=== PATIENT | female | born 1945 | race Hispanic/Latino ===

== ENCOUNTER 2017-01-26 09:26 | Inpatient (IN) | payer MEDICARE, OTHER ==
--- NOTE | 2017-01-26 09:54 | C.PDOC ---
History Of Present Illness Patient is a 71 y/o female that presents to the emergency department for evaluation of hemoptysis since this morning. Patient reports having similar episode 12 months ago that had initially resolved. Patient also complains of increased productive cough since yesterday, and notes having pleuritic pain, and general malaise. 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 Denies recent sick contact, or known TB exposure. Patient reports 50 lb weight loss over the 5 years, and notes "it had been gradual". Otherwise, denies any night sweats, or fever. HEMOPTYSIS SINCE THIS MORNING. PS SIM EPISODE X 1 2 MONTHS AGO THAT HAD INITIALLY RESOLVED. INCR PROD COUGH YEST. +PLEURITIC PAIN. GEN MALAISE. +TB 15 YRS AGO, PS COMPLETED MEDS @ THAT TIME. NO RECENT SICK CONTACT, KNOWN TB EXPOSURE. NO FEVER. PS 50 LB WT LOSS OVER 5 YRS. "IT HAD BEEN GRADUAL". NO NIGHT SWEATS EXAM NARD NONTOXIC +R LOWER RHONCHI NO TACHYPNEA, RETRACTION SPEAKING FULL SENTENCES CV RRR SINUS TACH NO EDEMA WARM DRY Time Seen by Provider: 01/26/17 09:52 Chief Complaint (Nursing): Cough, Cold, Congestion History Per: Patient History/Exam Limitations: no limitations Onset/Duration Of Symptoms: Hrs Current Symptoms Are (Timing): Still Present Quality: "Pain" Associated Symptoms: denies: Fever, Chills, Sweating, Chest Pain, Heart Racing, Leg/Calf Pain, Ankle/Leg Swelling, Dizziness, Light-headedness, Anxiety, Tingling In Hands Or Face, Musle Spasms In Hands Or Feet Recent travel outside of the [place]: No Additional History Per: Patient Past Medical History Reviewed: Historical Data, Nursing Documentation, Vital Signs Vital Signs: Last Vital Signs Temp 98.4 F 01/26/17 12:28 Pulse 68 01/26/17 12:28 Resp 16 01/26/17 12:28 BP 173/80 H 01/26/17 12:28 Pulse Ox 96 01/26/17 13:09 - Medical History PMH: Asthma, COPD, HTN Family History: States: Unknown Family Hx - Social History Hx Alcohol Use: No Hx Substance Use: No - Immunization History Hx Tetanus Toxoid Vaccination: No Hx Influenza Vaccination: Yes Hx Pneumococcal Vaccination: No Review Of Systems Except As Marked, All Systems Reviewed And Found Negative. Constitutional: Positive for: Malaise, Weight loss. Negative for: Fever, Chills , Sweats Cardiovascular: Negative for: Chest Pain, Palpitations, Light Headedness Respiratory: Positive for: Cough, Hemoptysis, Pleuritic Pain. Negative for: Shortness of Breath Gastrointestinal: Negative for: Nausea, Vomiting Physical Exam - Physical Exam Appears: Non-toxic, No Acute Distress (No apparent respiratory distress) Skin: Normal Color, Warm, Dry Head: Atraumatic, Normacephalic Eye(s): bilateral: Normal Inspection Neck: Normal ROM, Supple Chest: Symmetrical Cardiovascular: Rhythm Regular (tachycardic), No Edema, No Murmur Respiratory: No Rales, Rhonchi (Right lower lobe), No Wheezing, Other (no tachypnea or retractions, pt speaking in full sentences) Gastrointestinal/Abdominal: Soft, No Tenderness Extremity: Normal ROM, No Pedal Edema, No Deformity Extremity: Bilateral: Atraumatic Neurological/Psych: Oriented x3, Normal Speech, Normal Cognition ED Course And Treatment - Laboratory Results Result Diagrams: 01/26/17 11:03 01/26/17 11:03 ECG: Interpreted By De ECG Rhythm: Sinus Rhythm ECG Interpretation: Normal Rate From EC (bpm) O2 Sat by Pulse Oximetry: 96 (on RA) Pulse Ox Interpretation: Normal - Radiology CXR: Interpreted by Me CXR Interpretation: Yes: No Acute Disease Progress Note: EKG, CXR, blood work ordered and reviewed. Progress - Re-Evaluation Re-evaluation Note: 01/26/17 12:18 NARD AMBUL WO DIFF D/W DR Stacia ALTAMIRANO AWARE OF ER FINDINGS. WILL EVAL PT IN ER 01/26/17 12:30 SP PMD EVAL, WANTS TO ADMIT PT. WILL CONSULT ID. NO ABX @ [facility] TIME 01/26/17 13:18 NOTIFIED BY RN PT W LARGE OUTPUT HEMOPTYSIS. SARAHY VSS. - Data Reviewed Data Reviewed: Lab, Diagnostic imaging, EKG, Old records Disposition Counseled Patient/Family Regarding: Studies Performed, Diagnosis - Disposition Disposition: HOSPITALIZED Disposition Time: 12:30 Condition: STABLE - POA Present On Arrival: None - Clinical Impression Clinical Impression: Hemoptysis, Weight loss - Scribe Statement The provider has reviewed the documentation as recorded by the Scribe Colt Altamirano All medical record entries made by the Scribe were at my direction and personally dictated by me. I have reviewed the chart and agree that the record accurately reflects my personal performance of the history, physical exam, medical decision making, and the department course for this patient. I have also personally directed, reviewed, and agree with the discharge instructions and disposition. Decision To Admit - Pt Status Changed To: Hospital Disposition Of: Inpatient - Admit Certification Admit to Inpatient:: After my assessment, the patient will require hospitalization for at least two midnights. This is because of the severity of symptoms shown, intensity of services needed, and/or the medical risk in this patient being treated as an outpatient. - InPatient: Physician Admission Certification: I certify that this patient requires 2 or more midnights of care for the following reason:: SEE NOTE - . Bed Request Type: Regular Admitting Physician: Win Altamirano Patient Diagnosis: Hemoptysis, Weight loss
[2017-01-26 11:18] LABS: BASO % 0.2 % (0.0-2.0); EOS % 0.3 % (0.0-4.0); HEMOGLOBIN 10.7 g/dL (11.0-16.0); LYMPH # 1.3 K/uL (1.0-4.3); LYMPH % 23.2 % (20.0-40.0); MEAN CELL VOLUME 97.3 fL (81.0-99.0); MEAN CORPUSCULAR HEMOGLOBIN 32.2 pg (27.0-31.0); MEAN CORPUSCULAR HGB CONC 33.1 g/dL (33.0-37.0); MEAN PLATELET VOLUME 7.9 fL (7.2-11.7); MONO # 0.5 K/uL (0.0-0.8); MONO % 8.7 % (0.0-10.0); NEUT # 3.8 K/uL (1.8-7.0); NEUT % 67.6 % (50.0-75.0); NRBC % 0.1 % (0.0-2.0); RBC 3.32 Mil/uL (3.80-5.20); RED CELL DISTRIBUTION WIDTH 15.5 % (11.5-14.5); WHITE BLOOD COUNT 5.7 K/uL (4.8-10.8)
[2017-01-26 11:26] LABS: ALBUMIN 3.9 g/dL (3.5-5.0)
[2017-01-26 11:28] LABS: VENOUS BLOOD GAS BASE EXCESS 3.1 mmol/L (0.0-2.0); VENOUS BLOOD GAS PCO2 51 mmHg (40-60); VENOUS BLOOD GAS PO2 19 mm/Hg (30-55); VENOUS BLOOD PH 7.37 (7.32-7.43)
[2017-01-26 11:28] LABS: GFR AFRICAN-AMERICAN > 60; GFR NON-AFRICAN AMERICAN > 60
[2017-01-26 11:29] LABS: ALB/GLOB RATIO 0.8 (1.0-2.1); ALT/SGPT 25 U/L (9-52); AST/SGOT 24 U/L (14-36); BLOOD UREA NITROGEN 14 mg/dL (7-17); CALCIUM 8.4 mg/dl (8.6-10.4)
[2017-01-26 11:37] LABS: B-TYPE NATRIURETIC PEPTIDE 437 pg/mL (0-900)
--- NOTE | 2017-01-26 11:50 | RAD ---
HISTORY: COUGH HEMOPTYSIS HO TB COMPARISON: Chest x-ray performed 01/10/16 TECHNIQUE: Chest, one view. FINDINGS: LUNGS: 1.4 x 2.9 cm ovoid density re-identified at the left lung base. 14 mm inferior right upper lobe nodular density. Mild bibasilar atelectasis. Biapical pleural thickening. Please note that chest x-ray has limited sensitivity for the detection of pulmonary masses. PLEURA: No significant pleural effusion identified. No definite pneumothorax . CARDIOVASCULAR: Heart size appears within normal limits. Ectatic aorta. OSSEOUS STRUCTURES: Degenerative changes. VISUALIZED UPPER ABDOMEN: Unremarkable. OTHER FINDINGS: None. IMPRESSION: 1.4 x 2.9 cm ovoid density, left lung base. 14 mm inferior right upper lobe nodular density. Correlate clinically. Recommend CT of the chest for further evaluation if indicated. Mild bibasilar atelectasis. Biapical pleural thickening. Findings discussed with Dr. Martines on 01/26/17 at 11:49 a.m..
--- NOTE | 2017-01-26 18:51 | CP.PCM.CON ---
History of Present Illness - History of Present Illness History of Present Illness: 71 y/o female that presents to the emergency department for evaluation of hemoptysis since this morning. Patient reports having similar episode 12 months ago that had initially resolved. Patient also complains of increased productive cough since yesterday, and notes having pleuritic pain, and general malaise. 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 Denies recent sick contact, or known TB exposure. Patient reports 50 lb weight loss over the 5 years, and notes "it had been gradual". Otherwise, denies any night sweats, or fever. HEMOPTYSIS SINCE THIS MORNING. PS SIM EPISODE X 1 2 MONTHS AGO THAT HAD INITIALLY RESOLVED. INCR PROD COUGH YEST. +PLEURITIC PAIN. GEN MALAISE. +TB 15 YRS AGO, PS COMPLETED MEDS @ THAT TIME. NO RECENT SICK CONTACT, KNOWN TB EXPOSURE. NO FEVER. PS 50 LB WT LOSS OVER 5 YRS. "IT HAD BEEN GRADUAL". NO NIGHT SWEATS Review of Systems - Constitutional Constitutional: As Per HPI, Anorexia, Malaise, Weight Loss - EENT Eyes: absent: As Per HPI, Blind Spots, Blurred Vision, Change in Vision, Decreased Night Vision, Diplopia, Discharge, Dry Eye, Exophthalmos, Floaters, Irritation, Itchy Eyes, Loss of Peripheral Vision, Pain, Photophobia, Requires Corrective Lenses, Sees Flashes, Spots in Vision, Tunnel Vision, Other Visual Disturbances, Loss of Vision, Other Ears: absent: As Per HPI, Decreased Hearing, Ear Discharge, Ear Pain, Tinnitus, Abnormal Hearing, Disequilibrium, Dizziness, Other Nose/Mouth/Throat: absent: As Per HPI, Epistaxis, Nasal Congestion, Nasal Discharge, Nasal Obstruction, Nasal Trauma, Nose Pain, Post Nasal Drip, Sinus Pain, Sinus Pressure, Bleeding Gums, Change in Voice, Dental Pain, Dry Mouth, Dysphagia, Halitosis, Hoarsness, Lip Swelling, Mouth Lesions, Mouth Pain, Odynophagia, Sore Throat, Throat Swelling, Tongue Swelling, Facial Pain, Neck Pain, Neck Mass, Other - Breasts Breasts: absent: As Per HPI, Change in Shape, Mass, Pain, Nipple Discharge, Nipple Inversion, Skin Changes, Swelling, Other - Cardiovascular Cardiovascular: absent: As Per HPI, Acrocyanosis, Chest Pain, Chest Pain at Rest , Chest Pain with Activity, Claudication, Diaphoresis, Dyspnea, Dyspnea on Exertion, Edema, Irregular Heart Rhythm, Pain Radiating to Arm/Neck/Jaw, Leg Edema, Leg Ulcers, Lightheadedness, Orthopnea, Palpitations, Paroxysmal Nocturnal Dyspnea, Pedal Edema, Radiating Pain, Rapid Heart Rate, Slow Heart Rate, Syncope, Other - Respiratory Respiratory: Cough, Hemoptysis - Gastrointestinal Gastrointestinal: absent: As Per HPI, Abdominal Pain, Belching, Bloating, Change in Bowel Habits, Change in Stool Character, Coffee Ground Emesis, Constipation, Cramping, Diarrhea, Dyspepsia, Dysphagia, Early Satiety, Excessive Flatus, Fecal Incontinence, Heartburn, Hematemesis, Hematochezia, Loose Stools, Melena, Nausea, Odynophagia, Temesmus, Vomiting, Other - Genitourinary Genitourinary: absent: As Per HPI, Change in Urinary Stream, Difficulty Urinating, Dysuria, Flank Pain, Hematuria, Pyuria, Nocturia, Urinary Incontinence, Urinary Frequency, Urinary Hesitance, Urinary Urgency, Voiding Freq/Small Amts, Freq UTI, Hx Renal/Bladder Calculi, Hx /Renal Surgery, Bladder Distension, Other - Reproductive: Female Reproductive:Female: absent: As Per HPI, Amenorrhea, Amenorrhea/ Control, Currently Menstual, Cycle <21 Days, Cycle >35 Days, Cycle Variable, Menses 1-7 Days, Menses >/= 8 Days, Menses Variable, Cycle > 4 Weeks Between, No Menses for 6 Months, Heavy Menses, Light Menses, Normal Menses, Spotting Between Cycles , S/P Hysterectomy, Menopausal, Post Menopausal, Premenarche, Abnormal Vaginal Bleeding, Dysmenorrhea, Dyspareunia, Genital Lesions, Genital Pruritis, Pelvic Pain, Prolapse Symptoms, Sexual Dysfunction, Vaginal Discharge, Vaginal Dryness , Vaginal Odor, Vaginal Pruritis, Other - Menstruation Menstruation: absent: As Per HPI, Amenorrhea, Amenorrhea/ Control, Currently Menstual, Cycle <21 Days, Cycle >35 Days, Cycle Variable, Menses 1-7 Days, Menses >/= 8 Days, Menses Variable, Cycle > 4 Weeks Between, No Menses for 6 Months, Heavy Menses, Light Menses, Normal Menses, Spotting Between Cycles , S/P Hysterectomy, Menopausal, Post Menopausal, Premenarche, Abnormal Vaginal Bleeding, Dysmenorrhea, Other - Musculoskeletal Musculoskeletal: absent: As Per HPI, Abnormal Gait, Arthralgias, Atrophy, Back Pain, Deformity, Joint Swelling, Limited Range of Motion, Loss of Height, Muscle Cramps, Muscle Weakness, Myalgias, Neck Pain, Numbness, Radiating Pain into Limb, Stiffness, Tingling, Other - Integumentary Integumentary: absent: As Per HPI, Acne, Alopecia, Bleeding Lesions, Change in Hair, Change in Nails, Change in Pigmentation, Changing Lesions, Dry Skin, Erythema, Furuncle, Hirsutism, Lesions, New Lesions, Non-Healing Lesions, Photosensitivity, Pruritus, Rash, Skin Pain, Skin Ulcer, Sores, Striae, Swelling , Unusual Bruising, Wounds, Jaundice, Other - Neurological Neurological: absent: As Per HPI, Abnormal Gait, Abnormal Hearing, Abnormal Movements, Abnormal Speech, Behavioral Changes, Burning Sensations, Confusion, Convulsions, Disequilibrium, Dizziness, Numbness, Focal Weakness, Frequent Falls , Headaches, Lack of Coordination, Loss of Vision, Memory Loss, Paresthesias, Radicular Pain, Restless Legs, Sensory Deficit, Syncope, Tingling, Tremor, Vertigo, Weakness, Other Visual Disturbances, Other - Psychiatric Psychiatric: absent: As Per HPI, Abnormal Sleep Pattern, Anhedonia, Anxiety, Auditory Hallucinations, Behavioral Changes, Change in Appetite, Change in Libido, Confusion, Depression, Difficulty Concentrating, Hallucinations, Homicidal Ideation, Hopelessness, Irritability, Memory Loss, Mood Swings, Panic Attacks, Paranoia, Suicidal Ideation, Visual Hallucinations, Tactile Hallucinations, Other - Endocrine Endocrine: absent: As Per HPI, Change in Body Appearance, Change in Libido, Cold Intolorance, Deepening of Voice, Excessive Sweating, Fatigue, Flushing, Heat Intolorance, Increase in Ring/Shoe/Hat Size, Palpitations, Polydipsia, Polyphagia, Polyuria, Other - Hematologic/Lymphatic Hematologic: absent: As Per HPI, Easy Bleeding, Easy Bruising, Lymphadenopathy, Other Past Patient History - Infectious Disease Hx of Infectious Diseases: None - Past Social History Smoking Status: Never Smoked - CARDIAC Hx Hypertension: Yes - PULMONARY Hx Asthma: Yes Hx Chronic Obstructive Pulmonary Disease (COPD): Yes - HEENT Hx Deafness: Yes (Hearing aids bilat) - PSYCHIATRIC Hx Substance Use: No - SURGICAL HISTORY Hx Eye Surgery: Yes - ANESTHESIA Hx Anesthesia: Yes Hx Anesthesia Reactions: No Meds Allergies/Adverse Reactions: Allergies Allergy/AdvReac Type Severity Reaction Status Date / Time peach Allergy Verified 01/26/17 09:44 Physical Exam - Constitutional Appears: Non-toxic, Cachectic, Chronically Ill - Head Exam Head Exam: ATRAUMATIC, NORMAL INSPECTION, NORMOCEPHALIC - Eye Exam Eye Exam: PERRL. absent: Scleral icterus - ENT Exam ENT Exam: Mucous Membranes Dry, Normal External Ear Exam - Neck Exam Neck exam: Negative for: Lymphadenopathy - Respiratory Exam Respiratory Exam: Decreased Breath Sounds, Prolonged Expiratory Phase, Rales, Rhonchi - Cardiovascular Exam Cardiovascular Exam: REGULAR RHYTHM, +S1, +S2 - GI/Abdominal Exam GI & Abdominal Exam: Diminished Bowel Sounds, Soft. absent: Tenderness - Rectal Exam Rectal Exam: Deferred - Exam Exam: NORMAL INSPECTION - Extremities Exam Extremities exam: Positive for: pedal pulses present. Negative for: calf tenderness, pedal edema, tenderness - Back Exam Back exam: absent: CVA tenderness (L), CVA tenderness (R), paraspinal tenderness - Neurological Exam Neurological exam: Alert, CN II-XII Intact, Oriented x3, Reflexes Normal - Psychiatric Exam Psychiatric exam: Normal Mood - Skin Skin Exam: Dry Results - Vital Signs Recent Vital Signs: Last Vital Signs Temp 98.0 F 01/26/17 16:40 Pulse 79 01/26/17 16:40 Resp 18 01/26/17 16:40 BP 165/83 H 01/26/17 16:40 Pulse Ox 99 01/26/17 16:40 - Labs Result Diagrams: 01/26/17 11:03 01/26/17 11:03 Assessment & Plan (1) Hemoptysis Status: Acute (2) Bronchitis Status: Acute (3) COPD (chronic obstructive pulmonary disease) with emphysema Status: Acute - Assessment and Plan (Free Text) Assessment: r/o TB vs malignancy IV rx ordered was PPD + and treated for TB 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
--- NOTE | 2017-01-27 07:54 | HP ---
HISTORY OF PRESENT ILLNESS: This is a 71-year-old [place] female who came to the emergency room for evaluation of hemoptysis since this morning. The patient reports having similar episode 12 months ago that had initially resolved. The patient also complains of increased productive cough since yesterday. The patient is also having pleuritic chest pain and general malaise. The patient claims she lost weight recently. The patient also stated that she has been treated for TB [address] Lopez. The patient claims she completed all the medication at that time. No TB exposure at this time. The patient reports 50-pound weight loss over the last 5 years. The patient has chronic chest pain off and on secondary to coughing. PAST MEDICAL HISTORY: Asthma, COPD, hypertension. MEDICATIONS: The patient's medications are reviewed by me. FAMILY HISTORY: No known inherited disease. SOCIAL HISTORY: Nonsmoker, nonalcoholic. No IVDA. ALLERGIES: THE PATIENT IS ALLERGIC TO PEACH. REVIEW OF SYSTEMS: RESPIRATORY: As mentioned above. The patient also has shortness of breath. CARDIOVASCULAR: Positive for chest pain. GASTROINTESTINAL: Positive for abdominal pain and indigestion. CENTRAL NERVOUS SYSTEM: No focal neurological complaints offered. The patient denies having any urinary complaints. The patient has neck pain. PSYCHIATRIC: The patient has anxiety. All other systems are negative. PHYSICAL EXAMINATION: GENERAL: On admission, this is a 71-year-old [place] female, alert and oriented with persistent cough. VITAL SIGNS: Temperature 98.4, pulse 68, respirations 16, blood pressure 173/80 mmHg, pulse ox is 96% at room air. HEENT: Normal. NECK: JVP is flat. Carotids, no bruits. HEART: S1 and S2 normal. No gallop. No murmur. LUNGS: No rales. No wheezing. ABDOMEN: Soft, nontender. No organomegaly. CENTRAL NERVOUS SYSTEM: No focal neurological deficits. EXTREMITIES: No edema of the legs. LABORATORY DATA: On admission, white cell count is 5.7, hemoglobin is 10.7. Anemia present. BMP is within normal limits. The patient has chest x-ray done, which shows left lower lobe mass and also right upper lobe density. IMPRESSION: 1. Hemoptysis, rule out active tuberculosis. 2. Lung mass, rule out carcinoma of the lungs. 3. Weight loss. 4. Hypertension. 5. Chronic obstructive pulmonary disease. PLAN: The patient will be admitted to floor. We will get counseled with Dr. Marin and pulmonary consult with Dr. Dany Rubio. Repeat other workup as needed. Win Salinas MD
[2017-01-27] MEDS: cefTRIAXone 2 GM in Sodium Chloride 0.9% 100 ML IVPB SCH (10:48)
--- NOTE | 2017-01-27 13:33 | CP.PCM.PN ---
Subjective - Date & Time of Evaluation Date of Evaluation: 01/27/17 Time of Evaluation: 13:31 - Subjective Subjective: COUGH PRESENT. HEMOPTYSIS. BP HIGH. Objective - Vital Signs/Intake and Output Vital Signs (last 24 hours): Temp Pulse Resp BP Pulse Ox 97.6 F 80 20 165/89 H 100 01/27/17 08:24 01/27/17 08:24 01/27/17 08:24 01/27/17 08:24 01/27/17 08:24 Intake and Output: 01/27/17 01/27/17 06:59 18:59 Intake Total 300 Balance 300 - Medications Medications: Current Medications Amlodipine Besylate (Norvasc) 5 mg PO DAILY [facility] Ceftriaxone Sodium 2 gm/ (Sodium Chloride) 100 mls @ 100 mls/hr IVPB DAILY [facility] Last Admin: 01/27/17 10:48 Dose: 100 mls/hr Pneumococcal Polyvalent Vaccine (Pneumovax 23 Vaccine) 0.5 ml IM .ONCE ONE Stop: 01/28/17 10:01 - Constitutional Appears: No Acute Distress, Chronically Ill - Eye Exam Eye Exam: Normal appearance, PERRL - ENT Exam ENT Exam: Normal Exam - Respiratory Exam Respiratory Exam: Clear to Ausculation Bilateral, NORMAL BREATHING PATTERN - Cardiovascular Exam Cardiovascular Exam: REGULAR RHYTHM, +S1, +S2 - GI/Abdominal Exam GI & Abdominal Exam: Soft, Normal Bowel Sounds - Extremities Exam Extremities Exam: Full ROM, Normal Capillary Refill, Normal Inspection. absent : Joint Swelling, Pedal Edema - Neurological Exam Neurological Exam: Alert, Awake, CN II-XII Intact, Normal Gait, Oriented x3 Assessment and Plan - Assessment and Plan (Free Text) Assessment: R/O PTB. HTN. Plan: FOR CT CHEST. PUL EVAL.
--- NOTE | 2017-01-27 14:44 | CARD ---
APPROVED REPORT EKG Measurement Heart [id number] <Conclusion> Normal sinus rhythm Normal ECG
--- NOTE | 2017-01-27 15:57 | CT ---
CT chest without IV contrast Indication: Chest x-ray performed 01/26/17 Technique: Contiguous axial images were obtained through the chest without intravenous contrast enhancement. Sagittal and coronal reconstructions were generated and reviewed. This CT exam was performed using 1 or more of the falling dose reduction techniques: Automated exposure control, adjustment of the MAA and/or kV according to patient size, and/or use of iterative reconstruction technique. Radiation dose (DLP): 190.28 MGy-cm. Comparison: Findings: Visualized portions of the inferior thyroid gland appear unremarkable. The unenhanced mediastinal and hilar vascular structures appear grossly unremarkable. The heart appears within normal limits of size. 12 mm precarinal lymph node. Bibasilar fibrosis/atelectasis. Bronchiectasis. Regions of scattered tree-in-bud like opacities bilaterally consistent with small airways disease. Subtle left lower lobe ground-glass infiltrate (for example series 3, image 53). Posterior left mid lung zone 5 mm nodule (series 3, image 59). No pleural effusion. No pneumothorax. 10 mm medial right upper lobe nodule (series 3, image 17). 2.2 x 0.9 cm left lower lobe ovoid/cylindrical density, possibly region of mucoid impaction. Limited visualization of the noncontrast upper abdomen appears grossly unremarkable. Degenerative changes. Kyphosis. Impression: Bibasilar fibrosis/atelectasis. Bronchiectasis. Regions of scattered tree-in-bud like opacities bilaterally consistent with small airways disease. Subtle left lower lobe ground-glass infiltrate. Dependent left mid lung zone. 5 mm nodule, posterior left midlung zone. 10 mm medial right upper lobe nodule . Recommend further evaluation with biopsy, PET- CT, or follow-up CT at 3 months, and 9 months, and 24 months. 2.2 x 0.9 cm left lower lobe ovoid/cylindrical density, possibly region of mucoid impaction.
--- NOTE | 2017-01-27 18:57 | CP.PCM.PN ---
Subjective - Date & Time of Evaluation Date of Evaluation: 01/27/17 Time of Evaluation: 09:00 - Subjective Subjective: still with cough/ hemoptysis may need FOB dr fermin on board Objective - Vital Signs/Intake and Output Vital Signs (last 24 hours): Temp Pulse Resp BP Pulse Ox 98.1 F 79 20 157/81 H 99 01/27/17 15:34 01/27/17 15:34 01/27/17 15:34 01/27/17 15:34 01/27/17 15:34 Intake and Output: 01/27/17 01/27/17 06:59 18:59 Intake Total 300 Balance 300 - Medications Medications: Current Medications Amlodipine Besylate (Norvasc) 5 mg PO DAILY [facility] Last Admin: 01/27/17 16:03 Dose: 5 mg Ceftriaxone Sodium 2 gm/ (Sodium Chloride) 100 mls @ 100 mls/hr IVPB DAILY [facility] Last Admin: 01/27/17 10:48 Dose: 100 mls/hr Pneumococcal Polyvalent Vaccine (Pneumovax 23 Vaccine) 0.5 ml IM .ONCE ONE Stop: 01/28/17 10:01 Assessment and Plan (1) Hemoptysis Status: Acute (2) Bronchitis Status: Acute (3) COPD (chronic obstructive pulmonary disease) with emphysema Status: Acute - Assessment and Plan (Free Text) Assessment: r/o TB vs Malignancy
[2017-01-28 08:35] VITALS: BP 135/78; PULSE 82; RESP 19; TEMP 97.7; O2SAT 96
[2017-01-28] MEDS ORDERED: Pneumococcal 23-Valent Vaccine IM ONE ×2 (10:00→14:30)
[2017-01-28] MEDS: cefTRIAXone 2 GM in Sodium Chloride 0.9% 100 ML IVPB SCH (10:06)
--- NOTE | 2017-01-28 13:29 | CP.PCM.PN ---
Subjective - Date & Time of Evaluation Date of Evaluation: 01/28/17 Time of Evaluation: 13:26 - Subjective Subjective: PT IMPROVING. NO HEMOPTYSIS. SPUTUM C/S POSITIVE FOR STAPH AUREUS-PRELIMINARY. PUL EVAL NOTED. CT CHEST SHOWS LLL INFILTERATE. BRONCHIECTESIS. Objective - Vital Signs/Intake and Output Vital Signs (last 24 hours): Temp Pulse Resp BP Pulse Ox 97.7 F 82 19 135/78 96 01/28/17 08:34 01/28/17 08:34 01/28/17 08:34 01/28/17 08:34 01/28/17 08:34 Intake and Output: 01/28/17 01/28/17 06:59 18:59 Intake Total 360 Balance 360 - Medications Medications: Current Medications Amlodipine Besylate (Norvasc) 5 mg PO DAILY [facility] Last Admin: 01/28/17 10:06 Dose: 5 mg Ceftriaxone Sodium 2 gm/ (Sodium Chloride) 100 mls @ 100 mls/hr IVPB [facility]ILY [facility] Last Admin: 01/28/17 10:06 Dose: 100 mls/hr - Constitutional Appears: No Acute Distress, Chronically Ill - Eye Exam Eye Exam: Normal appearance, PERRL - ENT Exam ENT Exam: Normal Exam - Respiratory Exam Respiratory Exam: Clear to Ausculation Bilateral, NORMAL BREATHING PATTERN - Cardiovascular Exam Cardiovascular Exam: REGULAR RHYTHM, +S1, +S2 - GI/Abdominal Exam GI & Abdominal Exam: Soft, Normal Bowel Sounds - Extremities Exam Extremities Exam: Full ROM, Normal Capillary Refill, Normal Inspection. absent : Joint Swelling, Pedal Edema - Back Exam Back Exam: NORMAL INSPECTION - Neurological Exam Neurological Exam: Alert, Awake, CN II-XII Intact, Normal Gait, Oriented x3 - Psychiatric Exam Psychiatric exam: Normal Affect, Normal Mood Assessment and Plan - Assessment and Plan (Free Text) Assessment: PUL TB RULED OUT. SPUTUM POSITIVE FOR STAPH AUREUS. LLL PNEUMONIA. BRONCHIECTESIS. Plan: FOR DISCHARGE HOME. PO AUGMENTIN F/U CULTURE REPORT OUT PT. F/U IN THE OFFICE 1 WK.
--- NOTE | 2017-01-28 15:27 | CP.PCM.PN ---
Subjective - Date & Time of Evaluation Date of Evaluation: 01/28/17 Time of Evaluation: 15:27 Objective - Vital Signs/Intake and Output Vital Signs (last 24 hours): Temp Pulse Resp BP Pulse Ox 97.7 F 82 19 135/78 96 01/28/17 08:34 01/28/17 08:34 01/28/17 08:34 01/28/17 08:34 01/28/17 08:34 Intake and Output: 01/28/17 01/28/17 06:59 18:59 Intake Total 360 Balance 360 - Medications Medications: Current Medications Amlodipine Besylate (Norvasc) 5 mg PO DAILY AMY Last Admin: 01/28/17 10:06 Dose: 5 mg Ceftriaxone Sodium 2 gm/ (Sodium Chloride) 100 mls @ 100 mls/hr IVPB DAILY AMY Last Admin: 01/28/17 10:06 Dose: 100 mls/hr
--- NOTE | 2017-01-31 17:53 | CON ---
DATE: 01/28/2017 HISTORY OF PRESENT ILLNESS: The patient is a 71-year-old female with past history of hemoptysis, bronchiectasis, recurrent, came to the emergency room complaining of hemoptysis, which is *------* SOCIAL HISTORY: The patient is nonsmoker. PHYSICAL EXAMINATION GENERAL: The patient is awake, alert. *------*. HEENT: Within normal limits. NECK: Supple. CHEST: Symmetrical. HEART: Regular. ABDOMEN: Soft. EXTREMITIES: No edema. IMPRESSION: The patient suffered from bronchiectasis, hemoptysis. The patient had IV antibiotic. CAT scan of the chest *------*. Dany Rubio MD
--- NOTE | 2017-02-01 09:18 | DS ---
HISTORY OF PRESENT ILLNESS: This is a 71-year-old [place] female came to the emergency room with history of coughing blood on the day of admission. The patient complains of persistent cough. The patient also has loss of weight. The patient has generalized malaise. Denies having any fever. 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 Lopez. No night sweats or fever. PAST MEDICAL HISTORY: History of hypertension, peptic ulcer disease, COPD and asthma. FAMILY HISTORY: No known inherited disease. SOCIAL HISTORY: Nonsmoker, nonalcoholic. MEDICATIONS: Antihypertensive only. PHYSICAL EXAMINATION: GENERAL: On admission, alert, oriented, comfortable. VITAL SIGNS: Temperature 98.4, pulse 68, respirations 16, blood pressure 173/80 mmHg, pulse ox is 96% at room air. HEENT: Normal. NECK: JVP is flat. Carotids, no bruits. LUNGS: No rales. No wheezing. HEART: S1 and S2 normal. No gallop. No murmur. ABDOMEN: Soft and nontender. No organomegaly. CENTRAL NERVOUS SYSTEM: No focal neurological complaints. LABORATORY DATA: On admission, white cell count was with in normal limits, mild anemia was present. BMP was normal. Chest x- ray showed left lower lobe patchy infiltrate and also right upper lobe fibrotic changes. The patient was admitted to the hospital. CT scan of the chest was done, which was showing possible infiltrate. The patient sputum culture showed Staphylococcus aureus. Cardiogram was within normal limits. Septic workup was negative. Dr. Marin and Dr. Dany Rubio was consulted. The patient was discharged home with Augmentin p.o. FINAL DIAGNOSES: Left lower lobe pneumonia. Sputum culture positive for Staphylococcus aureus. Hemoptysis. Tuberculosis was ruled out. The patient will be followed up in my office in about 2 weeks. We will continue all the medication. Win Salinas MD
== END 2017-01-28 15:49 | disposition home or self-care (01) | DRG 190 ==
LOC: C.ER 09:26 → C.9E 12:30 → C.3T 14:19 → C.9E 14:44 → C.5T 16:34
PROVIDERS: ADMIT Internal Medicine; ATTEND Internal Medicine
DX: J44.0 Chronic obstructive pulmonary disease with (acute) lower respiratory infection (principal); J18.9 Pneumonia, unspecified organism; R04.2 Hemoptysis; J20.9 Acute bronchitis, unspecified; J45.909 Unspecified asthma, uncomplicated; I10 Essential (primary) hypertension; Z86.11 Personal history of tuberculosis; R63.4 Abnormal weight loss; R91.8 Other nonspecific abnormal finding of lung field; H91.93 Unspecified hearing loss, bilateral

== ENCOUNTER 2018-09-25 12:18 | Outpatient (CLI) | payer MEDICARE, OTHER | END 2018-09-25 12:19 | disposition home or self-care (01) | LOC: C.LAB 12:18 | DX: Z86.19 Personal history of other infectious and parasitic diseases (principal) ==